=== PATIENT | female | born 1980 | race Caucasian/White ===

== ENCOUNTER 2018-03-12 15:36 | Emergency (ER) | payer BC ==
--- NOTE | 2018-03-12 15:50 | EDM.PDOC ---
ED HPI GENERAL MEDICAL PROBLEM - General Stated Complaint: SLAMED FINGER IN CAR DOOR Time Seen by Provider: 03/12/18 15:47 - History of Present Illness INITIAL COMMENTS - FREE TEXT/NARRATIVE: HISTORY AND PHYSICAL: History of present illness: Patient 37 year old female presents with a concern of injury to her third and fourth digit of her right hand that occurred via blunt force trauma. Sample when it got slammed in a car door she denies other trauma or concern Review of systems: As per history of present illness and below otherwise all systems reviewed and negative. Past medical history: As per history of present illness and as reviewed below otherwise noncontributory. Surgical history: As per history of present illness and as reviewed below otherwise noncontributory. Social history: No reported history of drug or alcohol abuse. Family history: As per history of present illness and as reviewed below otherwise noncontributory. Physical exam: HEENT: Atraumatic, normocephalic, pupils reactive, negative for conjunctival pallor or scleral icterus, mucous membranes moist, throat clear, neck supple, nontender, trachea midline. Lungs: Clear to auscultation, breath sounds equal bilaterally, chest nontender. Heart: S1S2, regular, negative for clicks, rubs, or JVD. Abdomen: Soft, nondistended, nontender. Negative for masses or hepatosplenomegaly. Negative for costovertebral tenderness. Pelvis: Stable nontender. Genitourinary: Deferred. Rectal: Deferred. Extremities: Patient is a small abrasion noted to the third digit on the dorsal aspect she's limited range of motion secondary to pain there is no obvious laceration CMS neurovascular exam is unremarkable. Neuro: Awake, alert, oriented. Cranial nerves II through XII unremarkable. Cerebellum unremarkable. Motor and sensory unremarkable throughout. Exam nonfocal. Diagnostics: X-ray right hand Therapeutics: To be determined Impression: #1 acute injury right hand (blunt force trauma) Definitive disposition and diagnosis as appropriate pending reevaluation and review of above. - Related Data Allergies Allergy/AdvReac Type Severity Reaction Status Date / Time acetaminophen [From Lortab] Allergy Rash Verified 03/12/18 15:51 hydrocodone [From Lortab] Allergy Rash Verified 03/12/18 15:51 latex Allergy Rash Verified 03/12/18 15:51 povidone-iodine Allergy Rash Verified 03/12/18 15:51 [From Betadine] soap [From Betadine] Allergy Rash Verified 03/12/18 15:51 Home Meds: Home Meds Escitalopram [Lexapro] 15 mg PO DAILY 03/12/18 [History] Ranitidine HCl [Ranitidine] 300 mg PO DAILY 03/12/18 [History] ED ROS GENERAL - Review of Systems Review Of Systems: ROS reveals no pertinent complaints other than HPI. ED EXAM, GENERAL - Physical Exam Exam: See Below (dictation) Course - Vital Signs Last Recorded V/S: Last Vital Signs Temp 36.5 C 03/12/18 15:48 Pulse 84 03/12/18 15:48 Resp 20 03/12/18 15:48 BP 103/70 03/12/18 15:48 Pulse Ox 98 03/12/18 15:48 - Orders/Labs/Meds Meds: Medications Discontinued Medications Generic Name Dose Route Start Last Admin Trade Name Freq PRN Reason Stop Dose Admin Ketorolac Tromethamine 60 mg 03/12/18 16:26 03/12/18 16:32 Toradol IM 03/12/18 16:27 60 mg ONETIME ONE Administration Departure - Departure Time of Disposition: 15:49 Disposition: Home, Self-Care 01 Condition: Good Clinical Impression: Hand injury - Discharge Information Referrals: PCP,None [Primary Care Provider] - Additional Instructions: The following information is given to patients seen in the emergency department who are being discharged to home. This information is to outline your options for follow-up care. We provide all patients seen in our emergency department with a follow-up referral. The need for follow-up, as well as the timing and circumstances, are variable depending upon the specifics of your emergency department visit. If you don't have a primary care physician on staff, we will provide you with a referral. We always advise you to contact your personal physician following an emergency department visit to inform them of the circumstance of the visit and for follow-up with them and/or the need for any referrals to a consulting specialist. The emergency department will also refer you to a specialist when appropriate. This referral assures that you have the opportunity for followup care with a specialist. All of these measure are taken in an effort to provide you with optimal care, which includes your followup. Under all circumstances we always encourage you to contact your private physician who remains a resource for coordinating your care. When calling for followup care, please make the office aware that this follow-up is from your recent emergency room visit. If for any reason you are refused follow-up, please contact the [facility] emergency department at and asked to speak to the emergency department charge [place] Motrin/Tylenol as directed splint as directed return as needed as discussed[]
--- NOTE | 2018-03-12 16:21 | CR ---
EXAMINATION: Right hand HISTORY: Pain COMPARISON: None TECHNIQUE: 2 views FINDINGS/IMPRESSION: There is no acute osseous abnormality, dislocation, or fracture. Bone mineraliza tion and joint spaces appear normal.
[2018-03-12] MEDS ORDERED: Ketorolac 60 MG/2 ML SDV IM ONE (16:26)
== END 2018-03-12 17:05 | disposition home or self-care (01) ==
LOC: MW.ED 15:36
DX: S60.412A Abrasion of right middle finger, initial encounter (principal); Z88.6 Allergy status to analgesic agent; Z88.5 Allergy status to narcotic agent; Z91.040 Latex allergy status; Z88.8 Allergy status to other drugs, medicaments and biological substances; Z91.048 Other nonmedicinal substance allergy status; W23.1XXA Caught, crushed, jammed, or pinched between stationary objects, initial encounter
CPT/HCPCS: 73120; 96372; 99283; J1885